=== PATIENT | female | born 1980 | race Caucasian/White ===

== ENCOUNTER 2017-11-03 20:51 | Emergency (ER) | payer OTHER ==
[~2017-11-03] VITALS: Ht 162.6 cm; Wt 77.1 kg
[~2017-11-03 20:51] MED LIST: NOHOMEMEDICATIONS; ULTRAM 50MG TAB50 MG PO
[2017-11-03] MEDS ORDERED: NORCO 5-325 TA1 EACH PO (22:01)
[2017-11-03] MEDS ORDERED: IBUPROFEN 800800 M1 PO (22:01)
[2017-11-03] MEDS ORDERED: AMOXICILLIN 50500 MG PO (22:01)
[2017-11-03 22:29] VITALS: BP 127/85
== END 2017-11-03 22:29 | disposition home or self-care (01) ==
LOC: M.ERS 20:51
DX: K02.9 Dental caries, unspecified (principal); F17.200 Nicotine dependence, unspecified, uncomplicated; Z88.8 Allergy status to other drugs, medicaments and biological substances